=== PATIENT | male | born 2000 | race African-American/Black ===

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

== ENCOUNTER 2022-02-11 18:40 | Emergency (ER) | payer BC ==
[2022-02-11 18:58] VITALS: BP 143/86; PULSE 90; TEMP 99.7; BMI 29.0
== END 2022-02-11 19:10 | disposition home or self-care (01) ==
LOC: FER 18:40
DX: L03.031 Cellulitis of right toe (principal)
CPT/HCPCS: 99283-25